=== PATIENT | male | born 1955 | race Caucasian/White ===

== ENCOUNTER 2021-01-12 15:44 | Outpatient (CLI) | payer MEDICARE, SELFPAY ==
--- NOTE | 2021-01-12 15:59 | US_ITS ---
WS: [id number] INDICATION: Left neck palpable lump TECHNIQUE: Ultrasound soft tissue left neck FINDINGS: Ultrasound soft tissue left neck in the area of concern. Heterogeneous solid lesion in the area of concern left lateral inferior neck. This has heterogeneous solid internal contents with irreg ular borders and internal vascularity suspicious for neoplasm. This appears separate from the thyroid . This measures approximately 6.3 x 5.1cm. Recommend further evaluation with contrast-enhanced CT nec k for better anatomic detail. US/US soft tissue head neck [id number] IMPRESSION: 1. Heterogeneous irregular solid mass with internal vascularity in the left ne ck in the area of concern suspicious for neoplasm. Recommend further evaluation with contrast-enhanced CT neck for better anatomic detail.
== END 2021-01-12 15:45 | disposition home or self-care (01) ==
LOC: RAD 15:50
PROVIDERS: Visit Provider Nurse Practitioner Family
DX: R22.1 Localized swelling, mass and lump, neck (principal)
CPT/HCPCS: 76536

== ENCOUNTER 2021-01-14 10:45 | Outpatient (CLI) | payer MEDICARE, SELFPAY ==
--- NOTE | 2021-01-14 11:19 | CT_ITS ---
WS: [id number] CT CHEST WITH INTRAVENOUS CONTRAST HISTORY: HX SMOKER/NECK MASS TECHNIQUE: Contiguous 5 mm axial imaging performed on the thorax. Coronal and sagittal reformats are submitted. All CT scans at [facility] use at least one of these dose optimization techniq ues: automated exposure control; mA and/or kV adjustment per patient size (includes targeted exams wh ere dose is matched to clinical indication); or iterative reconstruction. CONTRAST: Omnipaque 300; 75 mL IV. DLP: 1065.85 mGy.cm COMPARISON: Soft tissue ultrasound 01/12/2021 Lungs and central airway: Mildly hyperexpanded lungs. No suspicious mass or nodules. There are a few benign granulomata. Subsegmental linear atelectasis at the lingula and LEFT lower lobes. Pleura: Normal. No pleural effusion. Heart and pericardium: Mild enlargement of the LEFT heart chambers. No effusion. Mediastinum and jorge: No significant mediastinal or hilar lymph nodes are identified. There is a smal l, 8mm LEFT paraesophageal lymph node just below the level of the kelly. Vessels: Mild atherosclerosis aorta. Bovine arch. Pulmonary artery size is nearly equal to the aorta. Chest wall and lower neck: There is a large lobulated soft tissue mass centered in the LEFT supraclav icular region which was described by ultrasound recently. This mass demonstrates variable enhancement and extends over a length of 6.9 cm and transversely by 3.7 cm. Mass is causing mild displacement of the LEFT thyroid lobe to the RIGHT. There is partial abutment of the LEFT carotid artery. Mass is in separable from the LEFT sternocleidomastoid muscle. Upper abdomen: Mild hepatic steatosis. No enhancing lesions within the liver. Gallbladder is negative . No adrenal mass. Very minimal thickening of the LEFT adrenal limbs. There is a small hiatal hernia. No mass noted in the upper abdomen. Small, indeterminate retrocrural lymph nodes. Osseous structures: Increase in thoracic kyphosis. Remote healed rib fractures in the posterior later al LEFT thorax. CT/CT chest w con* [id number] IMPRESSION: 1. There is a large lobulated solid mass in the LEFT supraclavicular region me asuring 6.9 x 3.7 cm. Likely neoplastic mass. No pulmonary lesion. Recommend bi opsy. 2. No pulmonary mass or adenopathy within the mediastinum or hilar regions. 3. Hepatic steatosis. 4. No adrenal mass. 5. There are a few small retrocrural and distal LEFT paraesophageal lymph node s with the largest measuring 8 mm. Indeterminate for malignancy.
--- NOTE | 2021-01-14 11:19 | CT_ITS ---
WS: [id number] CT NECK WITH CONTRAST HISTORY: NECK MASS/HX OF SMOKER TECHNIQUE: Contiguous 5 mm axial images are performed through the neck with intravenous contrast. Sag ittal and coronal reformats are also submitted. All CT scans at [facility] use at least o ne of these dose optimization techniques: automated exposure control; mA and/or kV adjustment per pat ient size (includes targeted exams where dose is matched to clinical indication); or iterative recons truction. CONTRAST: CONTRAST: Omnipaque 300; 75 mL IV. DLP: 561.54 mGy.cm COMPARISON: None available. Nasopharynx, oropharynx and hypopharynx are negative. There is very mild asymmetry of the larynx. No discrete soft tissue mass or abnormal enhancement. There is asymmetric appearance of the pyriform sin uses. The RIGHT pyriform sinus is enlarged and the LEFT is small and contains increased soft tissue w hich could be mucus secretions. There is very slight deviation of the aryepiglottic fold and the hypo epiglottic ligament to the LEFT. No obstruction is noted. Torus tubarius and fossa of Rosenmuller and parapharyngeal fat are normal. There are small cervical chain lymph nodes identified. These lymph nodes measure less than a centimet er. Again noted is the large LEFT supraclavicular mass that was described on the chest CT and is palp able by clinical exam. Mass extends over length of 6.9 cm transversely by 5.0 and anterior posterior by 6.3 cm. This mass is displaces the LEFT sternocleidomastoid muscle anteriorly and is inseparable f rom the sternocleidomastoid muscle. This mass extends to abut the LEFT thyroid and the LEFT carotid a rtery and nearly abuts the LEFT subclavian artery. Thyroid gland and salivary glands are normally enhancing with no masses. Mild spondylitic changes. No osteoblastic or osteolytic bone disease. Bovine arch. Visualized portions of the skull base demonstrate no abnormalities. Orbits and globes are within norm al limits. No soft tissue masses. Visualized paranasal sinuses and mastoid air cells are normal. Lung apices are clear. CT/CT neck w con* [id number] IMPRESSION: 1. Large LEFT supraclavicular mass corresponds to the palpable abnormality. Th e solid mass extends over length of 6.9 cm x 5.0 x 6.3 cm. Neoplastic mass of u ncertain etiology. Metastatic adenopathy or primary tumor or lymphoma should be considered. No lung lesions identified on the recent chest CT. Recommend biops y of the LEFT supraclavicular mass. 2. There is very mild asymmetry of the larynx in the region of the pyriform si nuses. LEFT pyriform sinus is collapsed with deviation of the aryepiglottic fol d and hypoepiglottic ligament to the LEFT. Recommend direct visualization for f urther evaluation. 3. No additional suspicious cervical chain lymph nodes other than the LEFT sup raclavicular mass.
[2021-01-14 12:06] LABS: Alanine Aminotransferase 23 U/L (0-41); Albumin Level 4.4 g/dL (3.5-5.2); Alkaline Phosphatase 62 IU/L (40-130); Anion Gap 13.4 (5-19); Aspartate Amino Transferase 22 U/L (0-40); Blood Urea Nitrogen 13 mg/dL (8-23); Carbon Dioxide 24 mmol/L (22-29); Chloride 101 mmol/L (98-107); Globulin 3.3 g/dL (1.3-4.6); Glomerular Filtration Rate 112.5 mL/min (90-130); Glucose 100 mg/dL (65-115); Osmolality Calculated 278 mOsm/kg (285-295); Potassium 4.4 mmol/L (3.5-5.1); Sodium 134 mmol/L (136-145); Total Bilirubin 0.4 mg/dL (0.15-1.2); Total Protein 7.7 g/dL (6.6-8.7)
[2021-01-14] MEDS: iohexol 300 mg/mL 100 mL Btl IV ×2 (13:07→13:10)
== END 2021-01-14 10:46 | disposition home or self-care (01) ==
LOC: RADWPI 10:54 → RAD 11:14
PROVIDERS: Nurse Practitioner Family; Visit Provider Nurse Practitioner Family
DX: R22.1 Localized swelling, mass and lump, neck (principal); Z87.891 Personal history of nicotine dependence
CPT/HCPCS: 36415; 70491; 71260; 80053